=== PATIENT | male | born 1945 | race Two or more races ===

== ENCOUNTER → 2024-10-07 | Outpatient (BNVA) | payer MEDICAID, SELFPAY | END | disposition home or self-care (01) | PROVIDERS: PCP Nurse Practitioner Family; Referring Provider Nurse Practitioner Family; Visit Provider Nurse Practitioner Family | DX: Z71.2 Person consulting for explanation of examination or test findings (principal); R73.03 Prediabetes; E78.5 Hyperlipidemia, unspecified; I10 Essential (primary) hypertension | CPT/HCPCS: 99213 ==

== ENCOUNTER → 2024-10-26 | Outpatient (BNVA) | payer MEDICAID, SELFPAY | END | disposition home or self-care (01) | PROVIDERS: PCP Nurse Practitioner Family; Referring Provider Nurse Practitioner Family; Visit Provider Nurse Practitioner Family | DX: I10 Essential (primary) hypertension (principal) | CPT/HCPCS: 99213 ==

== ENCOUNTER → 2024-11-09 | Outpatient (BNVA) | payer MEDICAID, SELFPAY | END | disposition home or self-care (01) | PROVIDERS: PCP Nurse Practitioner Family; Referring Provider Nurse Practitioner Family; Visit Provider Nurse Practitioner Family | DX: I10 Essential (primary) hypertension (principal); Z12.10 Encounter for screening for malignant neoplasm of intestinal tract, unspecified | CPT/HCPCS: 99214 ==

== ENCOUNTER → 2025-01-13 | Outpatient (BNVA) | payer MEDICAID, SELFPAY | END | disposition home or self-care (01) | PROVIDERS: PCP Nurse Practitioner Family; Referring Provider Nurse Practitioner Family; Visit Provider Nurse Practitioner Family | DX: Z71.2 Person consulting for explanation of examination or test findings (principal); R73.03 Prediabetes; E78.5 Hyperlipidemia, unspecified; I10 Essential (primary) hypertension | CPT/HCPCS: 99213 ==

== ENCOUNTER → 2025-03-01 | Outpatient (BNVA) | payer MEDICAID, SELFPAY | END | disposition home or self-care (01) | PROVIDERS: PCP Nurse Practitioner Family; Referring Provider Nurse Practitioner Family; Visit Provider Nurse Practitioner Family | DX: Z12.11 Encounter for screening for malignant neoplasm of colon (principal); Z23 Encounter for immunization | CPT/HCPCS: 90471; 90677; 99213; J90677 ==

== ENCOUNTER → 2025-04-12 | Outpatient (BNVA) | payer MEDICAID, SELFPAY | END | disposition home or self-care (01) | PROVIDERS: PCP Nurse Practitioner Family; Referring Provider Nurse Practitioner Family; Visit Provider Nurse Practitioner Family | DX: Z00.01 Encounter for general adult medical examination with abnormal findings (principal); H91.90 Unspecified hearing loss, unspecified ear; E78.5 Hyperlipidemia, unspecified; I10 Essential (primary) hypertension; R73.03 Prediabetes; N40.1 Benign prostatic hyperplasia with lower urinary tract symptoms; Z12.5 Encounter for screening for malignant neoplasm of prostate | CPT/HCPCS: 93005; 99173; 99215 ==

== ENCOUNTER → 2025-05-27 | Outpatient (CLI) | payer MEDICAID, SELFPAY ==
[2025-05-27 09:14] LABS: Collection Type, Urine Clean Catch
[2025-05-27 09:43] LABS: Prostate Specific Antigen 2.04 ng/mL (0-4.00)
[2025-05-27 09:45] LABS: Bilirubin,Urine Negative (Negative); Blood,Urine Negative (Negative); Clarity,Urine Clear (Clear/Hazy); Color,Urine Yellow (Lt Yel-Yel); Glucose, Urine Negative (Negative); Ketones,Urine Negative (Negative); Leukocyte Esterase,Urine Negative (Negative); Nitrite,Urine Negative (Negative); PH,Urine 7.0 (5.0-7.0); Protein,Urine Trace (Neg - Trace); RBC,Urine 21 /hpf (0-3); Specific Gravity,Urine 1.025 (1.001-1.035); Squamous Epithelial Cell,Urine < 1 /hpf (0-5); Urobilinogen,Urine Negative mg/dL (0.0-1.0); WBC,Urine 1 /hpf (0-5)
== END | disposition home or self-care (01) ==
LOC: COPL 08:28
PROVIDERS: PCP Nurse Practitioner Family; Referring Provider Urology; Visit Provider Urology
DX: N40.1 Benign prostatic hyperplasia with lower urinary tract symptoms (principal); R31.1 Benign essential microscopic hematuria
CPT/HCPCS: 36415; 81001; 84153

== ENCOUNTER → 2025-05-31 | Outpatient (BNVA) | payer MEDICAID, SELFPAY | END | disposition home or self-care (01) | PROVIDERS: PCP Nurse Practitioner Family; Referring Provider Nurse Practitioner Family; Visit Provider Urology | DX: N40.1 Benign prostatic hyperplasia with lower urinary tract symptoms (principal); N13.8 Other obstructive and reflux uropathy; Z87.440 Personal history of urinary (tract) infections; I10 Essential (primary) hypertension; E66.9 Obesity, unspecified; Z68.30 Body mass index [BMI] 30.0-30.9, adult; E78.00 Pure hypercholesterolemia, unspecified | CPT/HCPCS: 81003; 99212; 99213; G0463 ==

== ENCOUNTER → 2025-07-02 | Outpatient (BNVA) | payer MEDICAID, SELFPAY | END | disposition home or self-care (01) | PROVIDERS: PCP Nurse Practitioner Primary Care; Referring Provider Nurse Practitioner Primary Care; Visit Provider Nurse Practitioner Primary Care | DX: R42 Dizziness and giddiness (principal); I10 Essential (primary) hypertension | CPT/HCPCS: 93005; 99213 ==

== ENCOUNTER → 2025-07-05 | Outpatient (BNVA) | payer MEDICAID, SELFPAY | END | disposition home or self-care (01) | PROVIDERS: PCP Nurse Practitioner Primary Care; Referring Provider Nurse Practitioner Primary Care; Visit Provider Nurse Practitioner Primary Care | DX: R42 Dizziness and giddiness (principal); F41.9 Anxiety disorder, unspecified; Z63.8 Other specified problems related to primary support group; I10 Essential (primary) hypertension | CPT/HCPCS: 87811; 99213 ==

== ENCOUNTER 2025-07-06 01:16 | Emergency (ER) | payer MEDICAID, SELFPAY ==
[2025-07-06 01:20] VITALS: BMI 29.5
[2025-07-06 01:32] VITALS: BP 167/82; PULSE 60; RESP 17; TEMP 36.8; O2SAT 95
--- NOTE | 2025-07-06 01:36 | EKG_ITS ---
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
--- NOTE | 2025-07-06 01:36 | XR_ITS ---
Examination: PA chest single view Technique: Upright PA chest single view Date and time: July 06, 2025, 0159 hrs. Indications: High blood pressure with shortness of breath today. Findings: Normal heart size. Lungs are clear. The osseous structures are intact. Impression: No active disease.
--- NOTE | 2025-07-06 01:36 | PD.EDHA ---
ED Headache RME/HPI General Chief Complaint: General Adult/Misc Complain Stated Complaint: NAUSEA ABD PAIN MOUTH NUMBNESS Time Seen by Provider: 07/06/25 01:35 Arrival date/time: 07/06/25 01:16 RME / HPI RME / HPI Narrative: See [facility] for Dr. Horner's HPI documentation. Related Data Home Medications ?Medication ?Instructions ?Recorded ?Confirmed tamsulosin 0.4 mg capsule 0.4 mg PO QDAY 11/09/24 07/05/25 Previous Rx's ?Medication ?Instructions ?Recorded aspirin 81 mg tablet,delayed 81 mg PO QDAY #90 tabs 01/15/25 release cholecalciferol (vitamin D3) 25 25 mcg PO QDAY #90 caps 01/15/25 mcg (1,000 unit) capsule hydrochlorothiazide 25 mg tablet 25 mg PO QDAY #90 tabs 01/15/25 lisinopril 10 mg tablet 10 mg PO QDAY #90 tabs 01/15/25 simvastatin 10 mg tablet 10 mg PO QPM #90 tabs 01/15/25 alprazolam 0.5 mg tablet (Xanax) 0.5 mg PO BID PRN anxiety #20 tabs 07/06/25 Allergies Allergy/AdvReac Type Severity Reaction Status Date / Time No Known Allergies Allergy Verified 07/06/25 01:27 Review of Systems Review of Systems Systems Reviewed: All systems reviewed, normal except as documented Past Medical History Past Medical History CARDIAC: Positive Hypercholesterolemia and Hypertension; Negative Congestive Heart Failure RESPIRATORY: Negative Chronic Obstructive Pulmonary Disease (COPD) GENITOURINARY: Negative Renal Disease ENDOCRINE: Negative Diabetes Mellitus Type 1 or Diabetes Mellitus Type 2 Social History SMOKING STATUS: Never smoker SECOND HAND EXPOSURE: No ED Exam Narrative Physical exam: See [facility] for Dr. Horner's physical exam documentation. Course Quality Measures none Orders Category Date Time Status Bedside COVID-19 Antigen Test NOW Care 07/06/25 01:37 Completed Bedside Influenza A&B Antigen Test NOW Care 07/06/25 01:37 Completed EKG (ED ONLY) *Do not use* NOW Care 07/06/25 01:[address] chest abdomen pelvis wo Stat Exams 07/06/25 01:[address] head/brain wo con Stat Exams 07/06/25 01:37 Completed EKG (ED Only) Stat Exams 07/06/25 01:36 Draft US gall bladder Stat Exams 07/06/25 01:37 Completed XR chest 1V portable Stat Exams 07/06/25 01:36 Completed Amylase Stat Lab 07/06/25 01:40 Completed BNP [B-Type Natriuretic Peptide] Stat Lab 07/06/25 01:40 Completed Bilirubin,Direct Stat Lab 07/06/25 01:40 Completed CBC Stat Lab 07/06/25 01:40 Completed CMP [Comprehensive Metabolic Panel] Stat Lab 07/06/25 01:40 Completed Lipase Stat Lab 07/06/25 01:40 Completed Magnesium Stat Lab 07/06/25 01:40 Completed TSH [Thyroid Stimulating Hormone] Stat Lab 07/06/25 01:40 Completed Troponin I Stat Lab 07/06/25 01:40 Completed UA, C/S IF [Urinalysis, C/S if Indicated] Stat Lab 07/06/25 02:41 Completed ALPRazoLAM [Xanax] Med 07/06/25 01:36 Discontinued 0.5 mg PO X1 ONE KCL 10% Liq UDC 15 ML Med 07/06/25 02:17 Discontinued 40 meq PO X1 ONE cloNIDine HCL [Catapres] Med 07/06/25 01:36 Discontinued 0.1 mg PO X1 ONE Vital Signs Vital signs: Vital Signs Temperature 98.2 F 07/06/25 01:32 Pulse Rate 60 07/06/25 01:32 Respiratory Rate 17 07/06/25 01:32 Blood Pressure 167/82 H 07/06/25 01:32 Pulse Oximetry (%) 95 07/06/25 01:32 Oxygen Delivery Method Room Air 07/06/25 01:32 Headache MDM Narrative MDM Narrative:: This section includes all my notes and documentations, including HPI, PE, and ED course. Kirk Horner MD HPI: 80yo male with history of hypertension here with about a month history of intermittent episodes of different symptoms. Symptoms can include intense fear, pounding and racing heart, sweating, chills, shaking, trouble breathing, chest pain, stomach pain, nausea, numbness and tingling in the hands and feet and face, confusion, hot flashes, and feeling faint. ROS: All negative except as documented in HPI. Physical Exam: General: Alert and oriented. Appears anxious. High BP noted. Eyes: Conjunctivae and lids clear. PERRL. EOMI. ENT: No nasal congestion. Pharynx normal. TM normal bilaterally. Neck: Supple. Heart: RRR. Lungs: No respiratory distress. Good air movement. No rhonchi, wheezing, rales. Abdomen: Soft with equivocal upper quadrant tenderness. Skin: Warm and dry. Neuro: Alert and oriented X 3. Cranial nerves II to XII grossly normal. No peripheral motor deficits. I reviewed all diagnostic test results. My interpretation of the EKG is sinus rhythm with nonspecific ST-T changes. My interpretation of the chest x-ray is no acute findings. My review of the gallbladder ultrasound report is NAD. My review of the CT chest abdomen pelvis report is no acute findings. My review of the head CT report is no acute findings. Blood and urine tests remarkable for K 3.1. COVID/Influenza negative. At this point, diagnoses include: Anxiety Hypokalemia Treatment here included: Xanax 0.5 mg Oral clonidine 0.1 mg Oral KCl 40 mEq Significant improvement noted both subjectively and objectively. Recommend outpatient management. Based on my best medical judgment, made decision no further evaluation or treatment indicated at this time. Patient understands and agrees to the discharge instructions customized and printed, see below. Discharge instructions from Dr. Horner: 1. After extensive evaluation, there is no life-threatening condition.? Such as stroke or brain tumor or heart attack. 2. Your symptoms may be due to underlying stress or anxiety or nerves.? This is fairly common. 3. Take Xanax as needed.? Whether this helps or not will be valuable information to your private doctors. 4. See a private doctor on 07/07/2025 for recheck and further care. Ask to review all test results and official radiology reports, to make sure you receive all necessary follow-ups and monitoring, including repeat potassium level. For your low potassium level here, you were given liquid potassium. Try to eat a banana daily. 5. Seek immediate medical care with worsening or with any concerns.?? Instrucciones de chyna del Dr. Horner: 1. Tras margarito evaluaci?n exhaustiva, no se observa ninguna afecci?n potencialmente mortal, cherry un derrame cerebral, un tumor cerebral o un infarto. 2. Ady s?ntomas pueden deberse a estr?s, ansiedad o nerviosismo subyacentes. [place] es bastante com?n. 3. [place] Xanax seg?n sea necesario. Si esto ayuda o no, ser? margarito informaci?n valiosa para ady m?dicos. 4. Consulte con un m?dico el 08/05/2025 para margarito nueva revisi?n y atenci?n adicional. Solicite la revisi?n de todos los resultados de las pruebas y los informes radiol?gicos oficiales para asegurarse de recibir todos los seguimientos y la monitorizaci?n necesarios, incluyendo la repetici?n del nivel de potasio. Para coreas nivel bajo de potasio, le administraron potasio l?quido. Intente comer un pl?maxine al d?a. 5. Busque atenci?n m?dica inmediata si la condici?n empeora o si tiene alguna inquietud. Kirk Horner MD Patient data External records reviewed:: [facility] previous records (Reviewed outpatient clinic visit from 07/05/25.) Clinical information provided by:: patient Social determinants that could affect healthcare access:: none Patient has the following chronic illnesses:: HTN, HLD How is presenting disease/condition affected by chronic disease/condition?: caused by Evaluation data The following diagnostics were reviewed and interpreted by me:: lab results, radiology exam(s) and EKG tracing(s) (My interpretation of the EKG is: Sinus rhythm (58 bpm) with nonspecific ST-T changes. Kirk Horner MD) Lab and/or radiology exams considered but not ordered:: none Interpretation Summary: I reviewed all diagnostic test results. My interpretation of the EKG is sinus rhythm with nonspecific ST-T changes. My interpretation of the chest x-ray is no acute findings. My review of the gallbladder ultrasound report is NAD. My review of the CT chest abdomen pelvis report is no acute findings. My review of the head CT report is no acute findings. Blood and urine tests remarkable for K 3.1. COVID/Influenza negative. Medications / Prescriptions Medications or Prescriptions considered but not ordered:: none Medication administrations:: Medication Administration History Discontinued Medications Alprazolam (Alprazolam 0.25 Mg Tablet) 0.5 mg PO X1 ONE Stop: 07/06/25 01:37 Last Admin: 07/06/25 02:27 Dose: 0.5 mg Documented By: MAR Clonidine (Clonidine Hcl 0.1 Mg Tablet) 0.1 mg PO X1 ONE Stop: 07/06/25 01:37 Last Admin: 07/06/25 02:28 Dose: 0.1 mg Documented By: MAR Potassium Chloride (Potassium Chloride 10% 20 Meq/15 Ml Udc) 40 meq PO X1 ONE Stop: 07/06/25 02:18 Last Admin: 07/06/25 03:10 Dose: 40 meq Documented By: GODWIN Treatment here included: Xanax 0.5 mg Oral clonidine 0.1 mg Oral KCl 40 mEq Consultations Consultation(s) initiated? (list below): No Diagnosis Differential diagnosis headache: migraine, tension headache, subarachnoid hemorrhage and other (CVA, TIA, brain tumor, [place], psychogenic) Most likely diagnosis given after review of the tests above:: Anxiety Hypokalemia Admission Indicated Admission indicated?: not indicated Explain why admission is indicated or not indicated:: With significant improvement and no condition needing emergent intervention, there was no indication for admission. Admission Request Was there a request for admission?: No Disposition Plan Disposition Plan: Discharge Discharge Attestation Discharge Attestation: The patient and all family members were given an opportunity to ask questions and understood the discharge instructions. Discharge instructions specifically effects, indications for sooner follow up or return to the emergency department, and the expected course of current diagnosis. Patient condition: Stable Discharge Plan Plan Patient Disposition: HOME (Self Care) Prescriptions/Referrals Prescriptions/Med Rec: New alprazolam [Xanax] 0.5 mg tablet 0.5 mg PO BID PRN (Reason: anxiety) Qty: 20 0RF No Action tamsulosin 0.4 mg capsule 0.4 mg PO QDAY aspirin 81 mg tablet,delayed release (DR/EC) 81 mg PO QDAY Qty: 90 1RF Rx Instructions: Directions in [place]ian cholecalciferol (vitamin D3) 25 mcg (1,000 unit) capsule 25 mcg PO QDAY Qty: 90 0RF hydrochlorothiazide 25 mg tablet 25 mg PO QDAY Qty: 90 1RF lisinopril 10 mg tablet 10 mg PO QDAY Qty: 90 1RF Rx Instructions: Directions in [place]ian simvastatin 10 mg tablet 10 mg PO QPM Qty: 90 1RF Referrals: [facility] [facility],Melony Field [employer]ER [Primary Care Provider, Family Practice] - In 1 week Problem List Clinical Impression: Anxiety Patient/Caregiver Discharge Instructions Discharge Activity: activity as tolerated Education Materials: ED Anxiety Reaction, ED Panic Attack Additional Instructions: Discharge instructions from Dr. Horner: 1. After extensive evaluation, there is no life-threatening condition.? Such as stroke or brain tumor or heart attack. 2. Your symptoms may be due to underlying stress or anxiety or nerves.? This is fairly common. 3. Take Xanax as needed.? Whether this helps or not will be valuable information to your private doctors. 4. See a private doctor on 07/07/2025 for recheck and further care. Ask to review all test results and official radiology reports, to make sure you receive all necessary follow-ups and monitoring, including repeat potassium level. For your low potassium level here, you were given liquid potassium. Try to eat a banana daily. 5. Seek immediate medical care with worsening or with any concerns.?? Instrucciones de chyna del Dr. Horner: 1. Tras margarito evaluaci?n exhaustiva, no se observa ninguna afecci?n potencialmente mortal, cherry un derrame cerebral, un tumor cerebral o un infarto. 2. Ady s?ntomas pueden deberse a estr?s, ansiedad o nerviosismo subyacentes. [place] es bastante com?n. 3. [place] Xanax seg?n sea necesario. Si esto ayuda o no, ser? margarito informaci?n valiosa para ady m?dicos. 4. Consulte con un m?dico el 08/05/2025 para margarito nueva revisi?n y atenci?n adicional. Solicite la revisi?n de todos los resultados de las pruebas y los informes radiol?gicos oficiales para asegurarse de recibir todos los seguimientos y la monitorizaci?n necesarios, incluyendo la repetici?n del nivel de potasio. Para coreas nivel bajo de potasio, le administraron potasio l?quido. Intente comer un pl?maxine al d?a. 5. Busque atenci?n m?dica inmediata si la condici?n empeora o si tiene alguna inquietud. Print Language: Jordanian Stand Alone Forms: Nani Award Info., Patient Portal Info Letter
--- NOTE | 2025-07-06 01:37 | XR_ITS ---
Examination: Abdomen sonogram, Limited Date and time of exam: July 06, 2025, 0209 hrs. Indications: Right upper abdominal pain and nausea beginning several weeks ago. Technique: Real-time whitfield scale transabdominal sonographic images of the upper abdomen obtained. Findings: Normal gallbladder. Normal common bile duct 0.33 cm. Pancreas obscured by bowel gas. Liver 14.15 cm no liver lesions. Normal hepatopedal portal venous flow. Patent IVC Impression: Normal gallbladder Liver normal size no focal liver lesions.
--- NOTE | 2025-07-06 01:37 | XR_ITS ---
Examination: CT brain head without contrast. 2-D sagittal coronal reconstructions Date and time of exam:July 06, 2025, 0401 hrs. Indications: Facial numbness nausea altered mental status today. CTDI: vol (mGy):49.4 DLP: (mGycm):961 Technique: Multiple CT axial sections of the brain have been obtained, 5 mm slice thickness. Contrast has not been administered. 2-D sagittal, coronal reconstructions have been obtained Low dose protocols were performed. One or more of the following dose reduction techniques were used; automated exposure control, adjustment of the mA and/or KV according to patient size, use of iterative reconstruction technique. Findings: No significant ventricular enlargement. Intra-axial or extra-axial hemorrhage density is not seen. No mass effect or midline shift Basal cisterns are not remarkable. Fourth ventricle is midline. Cranial vault intact. Impression: Negative for acute hemorrhage, mass effect or midline shift
--- NOTE | 2025-07-06 01:37 | XR_ITS ---
Examination: CT chest, without intravenous contrast. CT abdomen, without intravenous contrast. CT pelvis, without intravenous contrast. 2-D sagittal and coronal reconstructions. 3-D reconstructions. Date and time of exam:July 06, 2025, 0402 hrs. Indications: Shortness of breath abdominal pain today facial numbness CTDI vol (mgy) 11. DLP (MGycm)806. Technique: Multiple CT images, 3.0 mm slice thickness, obtained chest, abdomen, pelvis, with the high-resolution 64 slice scanner.. Sagittal and coronal 2-D reconstructions are obtained. 3-D reconstructions Low dose protocols were performed. One or more of the following dose reduction techniques were used; automated exposure control, adjustment of the mA and/or KV according to patient size, use of iterative reconstruction technique. Findings: No thoracic aortic aneurysmal dilatation. Pulmonary artery segments are not enlarged. No mediastinal lymphadenopathy. No pneumonia, pulmonary edema or pleural disease. Hepatic cirrhosis. No gallstones No pancreatic mass. Renal cysts, no hydronephrosis or ureteral calculi. Normal appendix. No bowel obstruction. No diverticulitis. Urinary bladder wall thickening, more prominent anteriorly measuring up to 15 mm Transverse prostate dimension 5 cm Impression: No mediastinal lymphadenopathy. No pneumonia, pulmonary edema or pleural disease. Urinary bladder wall thickening up to 15 mm with moderate prostatomegaly, consider early urinary tract outflow obstruction secondary to prostatomegaly, cystitis, early bladder cancer not excluded, clinical correlation and follow-up advised
[2025-07-06 01:52] LABS: Basophils # (Auto) 0.0 Thou/mm3 (0.0-0.2); Basophils % (Auto) 0 % (0-2.5); Eosinophils # (Auto) 0.1 Thou/mm3 (0.0-0.5); Eosinophils % (Auto) 1 % (0-10); Hematocrit 46.4 % (41.0-53.0); Hemoglobin 15.8 g/dL (13.5-16.0); Immature Granulocytes Auto 0.03 Thou/mm3 (0.00-0.00); Lymphocytes # (Auto) 2.8 Thou/mm3 (1.0-4.8); Lymphocytes % (Auto) 25 % (10-50); Mean Corpuscular HGB Conc 34.1 g/dl (31.0-37.0); Mean Corpuscular Hemoglobin 29.9 pg (25.0-35.0); Mean Corpuscular Volume 88 fL (80-100); Monocytes # (Auto) 0.9 Thou/mm3 (0.0-0.8); Monocytes % (Auto) 9 % (0-12); Neutrophils # (Auto) 7.0 Thou/mm3 (1.8-7.7); Neutrophils % (Auto) 65 % (37-80); Nucleated Red Blood Cell # 0.00 Thou/mm3 (0.00-0.00); Nucleated Red Blood Cell % 0 /100 WBC (0); Platelet Count 282 Thou/mm3 (140-440); RDW Standard Deviation 43.0 fL (35.1-43.9); Red Blood Count 5.29 Miln/mm3 (4.50-5.90); White Blood Count 10.8 Thou/mm3 (3.8-10.6)
[2025-07-06 02:09] LABS: B-Type Natriuretic Peptide 28 pg/mL (0-100)
[2025-07-06 02:13] LABS: Alanine Aminotransferase 23 U/L (10-49); Albumin, Serum 4.2 gm/dL (3.4-4.8); Albumin/Globulin Ratio 1.4 (1.2-2.2); Alkaline Phosphatase 69 U/L (46-116); Amylase 70 U/L (30-118); Anion Gap 11 (7-16); Aspartate Amino Transferase 27 U/L (0-34); BUN/Creatinine Ratio 13 Ratio (12-20); Bilirubin,Direct 0.2 mg/dL (0.0-0.3); Bilirubin,Total 0.7 mg/dL (0.3-1.2); Blood Urea Nitrogen 13 mg/dL (9-23); Calcium 8.9 mg/dL (8.3-10.6); Calcium (Corrected) 8.9 mg/dL (8.5-10.1); Carbon Dioxide 28.2 mMol/L (20.0-31.0); Chloride 100 mMol/L (98-107); Creatinine (Component) 1.0 mg/dL (0.6-1.3); Estimated Creatinine Clearance 48.9 mL/min (>60); Globulin 2.9 gm/dL (2.3-3.5); Glucose 115 mg/dL (74-106); Lipase 30 U/L (12-53); Magnesium 1.9 mg/dL (1.6-2.6); Osmolality,Calculated 278 (275-295); Potassium 3.1 mMol/L (3.4-5.1); Sodium 139 mMol/L (136-145); Thyroid Stimulating Hormone 5.92 uIU/mL (0.55-4.78); Total Protein 7.1 gm/dL (5.7-8.2); Troponin I < 0.020 ng/mL (0.0-0.045); eGFR > 60 See Note
[2025-07-06 02:28] VITALS: BP 157/82; PULSE 60
[2025-07-06 03:06] LABS: Collection Type, Urine Clean Catch; Squamous Epithelial Cell,Urine 0 /hpf (0-5)
[2025-07-06] MEDS: POTASSIUM CHLORIDE 10% 20 MEQ/15 ML UDC 40 MEQ PO (03:10)
[2025-07-06 03:11] LABS: Bilirubin,Urine Negative (Negative); Blood,Urine 2+ (Negative); Clarity,Urine Clear (Clear/Hazy); Color,Urine Lt-Yellow (Lt Yel-Yel); Culture Indicated,Urine Not Indicated; Glucose, Urine Negative (Negative); Ketones,Urine Negative (Negative); Leukocyte Esterase,Urine Negative (Negative); Nitrite,Urine Negative (Negative); PH,Urine 6.5 (5.0-7.0); Protein,Urine Negative (Neg - Trace); RBC,Urine 23 /hpf (0-3); Specific Gravity,Urine 1.018 (1.001-1.035); Urobilinogen,Urine Negative mg/dL (0.0-1.0); WBC,Urine < 1 /hpf (0-5)
--- NOTE | 2025-07-06 03:32 | PRELIM_ITS ---
Gallbladder ultrasound. July 06, 2025 0209 hours Clinical history: RUQ tenderness Comparison: No prior study is available for comparison. Findings: Gallbladder wall is 3 mm thick. No pericholecystic fluid. No cholelithiasis or choledocholithiasis. Common bile duct is 3 mm in diameter. Pancreas is obscured. Liver is 14.2 cm long. No focal hepatic lesion. No ascites. Main portal vein is antegrade. Inferior vena cava is unremarkable. Impression: Upper normal gallbladder wall thickness without calculi. No acute process. Report Electronically Signed By: Kvng Mcallister 07/06/2025 3:31:41 AM [EST]
[2025-07-06 04:17] VITALS: BP 103/70; PULSE 64; RESP 17; TEMP 36.9; O2SAT 95
--- NOTE | 2025-07-06 05:29 | PRELIM_ITS ---
CT scan of the chest, abdomen and pelvis without intravenous contrast (axial sections with sagittal and coronal reformats) July 06, 2025 at 0402 hours Clinical History: Shortness of breath, abdominal pain. Comparison: No prior study is available for comparison. Findings: Clear lungs. Cardiac size is normal. No pericardial effusion pleural effusion or pneumothorax. Hepatic cysts up to 4 cm. The gallbladder, spleen, pancreas and adrenal glands are unremarkable. Small bilateral renal cysts. No urinary tract stone or obstruction is identified. The urinary bladder is decompressed, limiting evaluation. No free intraperitoneal air or fluid. The appendix is normal, best seen on image 200. Bowel caliber is normal. The abdominal wall is unremarkable. No acute osseous process. Impression: No acute process of the chest abdomen or pelvis. Report Electronically Signed By: Kvng Mcallister 07/06/2025 5:29:08 AM [EST]
== END 2025-07-06 05:33 | disposition home or self-care (01) ==
PROVIDERS: Emergency Provider Emergency Medicine; PCP Nurse Practitioner Family
DX: F41.9 Anxiety disorder, unspecified (principal)
CPT/HCPCS: 36415; 70450; 71045; 71250; 74176; 76705; 80053; 81001; 82150; 82248; 83690; 83735; 83880; 84443; 84484; 85025; 87400; 87811; 93005; 99283; A9270

== ENCOUNTER → 2025-07-19 | Outpatient (BNVA) | payer MEDICAID, SELFPAY | END | disposition home or self-care (01) | PROVIDERS: PCP Nurse Practitioner Family; Referring Provider Nurse Practitioner Family; Visit Provider Nurse Practitioner Family | DX: F41.9 Anxiety disorder, unspecified (principal); F32.1 Major depressive disorder, single episode, moderate | CPT/HCPCS: 99214 ==

== ENCOUNTER → 2025-07-30 | Outpatient (BNVA) | payer OTHER, SELFPAY | END | disposition home or self-care (01) | PROVIDERS: PCP Nurse Practitioner Family; Referring Provider Nurse Practitioner Family; Visit Provider Nurse Practitioner Family | DX: F41.9 Anxiety disorder, unspecified (principal); F32.1 Major depressive disorder, single episode, moderate; E03.8 Other specified hypothyroidism; Z71.2 Person consulting for explanation of examination or test findings; N40.1 Benign prostatic hyperplasia with lower urinary tract symptoms; N39.43 Post-void dribbling; E78.5 Hyperlipidemia, unspecified; I10 Essential (primary) hypertension; Z23 Encounter for immunization; R73.03 Prediabetes | CPT/HCPCS: 90471; 90686; 99213 ==